=== PATIENT | male | born 1945 | race Caucasian/White ===

== ENCOUNTER 2017-09-30 01:42 | Emergency (ER) | payer MEDICARE, MEDICAID ==
[~2017-09-30] VITALS: Ht 170.2 cm; Wt 75.0 kg
[~2017-09-30 01:42] MED LIST: GABA-531; HYDR100C; [UNRECOGNIZED DRUG - CODE]; [UNRECOGNIZED DRUG - CODE]; carvedilol
[2017-09-30 02:37] LABS: BASOPHILS % 0.9 % (0.0-2.0); EOSINOPHILS % 4.6 % (0.0-5.0); HEMATOCRIT. 41.9 % (42.0-52.0); HEMOGLOBIN. 14.4 g/dL (14.0-18.0); LYMPHOCYTES % 20.8 % (20.0-50.0); MEAN CORPUSCULAR HEMOGLOBIN 29.2 pg (28.0-32.0); MEAN CORPUSCULAR VOLUME 84.8 fL (80.0-94.0); MEAN PLATELET VOLUME 8.5 fl (7.4-10.4); MONOCYTES % 8.1 % (2.0-8.0); NEUTROPHILS % 65.6 % (40.0-76.0); PLATELET 204 x1000/uL (130-400); RED BLOOD CELL COUNT 4.94 mill/uL (4.7-6.1)
[2017-09-30 02:44] LABS: CHLORIDE 103 mEq/L (98-107)
[2017-09-30 02:46] LABS: INR 1.2; PARTIAL THROMBOPLASTIN TIME 29.4 sec (23.4-31.0); PROTHROMBIN TIME 12.6 sec (9.4-11.6)
[2017-09-30] MEDS ORDERED: ASPIRIN 325MG TABLET PO ONE (03:00)
[2017-09-30] MEDS ORDERED: ENOXAPARIN 80MG/0.8ML SYR SUBCUT SCH (03:00)
[2017-09-30 03:51] VITALS: BP 105/75
== END 2017-09-30 04:03 | disposition short-term general hospital (02) ==
LOC: ER 01:42 → CANBEDREQ 21:16
DX: I21.4 Non-ST elevation (NSTEMI) myocardial infarction (principal); R55 Syncope and collapse; R01.1 Cardiac murmur, unspecified; I48.91 Unspecified atrial fibrillation; I25.10 Atherosclerotic heart disease of native coronary artery without angina pectoris; R73.03 Prediabetes; Z79.01 Long term (current) use of anticoagulants; Z95.1 Presence of aortocoronary bypass graft; Z95.5 Presence of coronary angioplasty implant and graft; Z95.0 Presence of cardiac pacemaker
CPT/HCPCS: 36415; 71045; 80053; 83690; 83880; 84484; 85025; 85610; 85730; 87040; 93005; 96372; 99285; J1650

== ENCOUNTER 2020-06-30 09:17 | Emergency (ER) | payer OTHER, MEDICAID ==
[~2020-06-30] VITALS: Ht 172.7 cm; Wt 77.0 kg
[~2020-06-30 09:17] MED LIST changes: -GABA-531; +GABA-532
[2020-06-30] MEDS ORDERED: MAGNESIUM CITRATE 300ML SOLUTION PO ONE (09:45)
[2020-06-30] MEDS ORDERED: ACETAMINOPHEN 325MG TABLET PO ONE (09:45)
[2020-06-30] MEDS ORDERED: LACTULOSE 20G/30ML UDC PO ONE (09:45)
[2020-06-30] MEDS ORDERED: POLY17PO3 PO (11:05)
[2020-06-30] MEDS ORDERED: TOPUD PO (11:05)
[2020-06-30 11:09] VITALS: BP 146/88
== END 2020-06-30 11:17 | disposition home or self-care (01) ==
LOC: ER 09:17
DX: K59.00 Constipation, unspecified (principal); R53.1 Weakness; R03.0 Elevated blood-pressure reading, without diagnosis of hypertension
CPT/HCPCS: 99284